=== PATIENT | male | born 1940 | race Caucasian/White ===

== ENCOUNTER 2021-08-29 18:05 | Inpatient (IN) | payer MEDICARE ==
[~2021-08-29] VITALS: Ht 172.7 cm; Wt 73.1 kg
[2021-08-29] MEDS ORDERED: MAGN400O6 PO (18:15)
[2021-08-29] MEDS ORDERED: PANT40TA2 PO (18:15)
[2021-08-29] MEDS ORDERED: ONDA4TAB5 PO (18:15)
[2021-08-29] MEDS ORDERED: RIVA10TA PO (18:15)
[2021-08-29] MEDS ORDERED: HYDR-4076 PO (18:15)
[2021-08-29] MEDS ORDERED: LEVO75TA7 PO (18:15)
[2021-08-29] MEDS ORDERED: HYDR-4209 PO (18:15)
[2021-08-29] MEDS ORDERED: SILD20TA2 PO (18:15)
[2021-08-29] MEDS ORDERED: IPRA4AER IH (18:15)
[2021-08-29] MEDS ORDERED: ACET-868 PO (18:15)
[2021-08-29] MEDS ORDERED: MELA3TAB41 PO (18:15)
[2021-08-29] MEDS ORDERED: LORA-259 PO (18:15)
[2021-08-29] MEDS ORDERED: ALBU8.5H8 IH (18:15)
[2021-08-29] MEDS ORDERED: MULT-447 PO (18:15)
[2021-08-29] MEDS ORDERED: TAMS-12 PO (18:15)
[2021-08-29] MEDS ORDERED: SPIR25TA PO (18:15)
[2021-08-29] MEDS ORDERED: HYDR-3980 PO (18:15)
[2021-08-29 19:26] LABS: CALCIUM, SERUM 8.5 mg/dL (8.5-10.1); CARBON DIOXIDE 22 mmol/L (21-32); CHLORIDE 105 mmol/L (98-107); CREATININE 2.2 mg/dL (0.6-1.3); GLUCOSE 102 mg/dL (74-106); POTASSIUM 5.8 mmol/L (3.5-5.1); SODIUM SERUM 136 mmol/L (136-145); UREA NITROGEN, BLOOD 71 mg/dL (7-18)
[2021-08-29 19:36] LABS: ALANINE AMINOTRANSFERASE 386 U/L (12-78); ALBUMIN 3.4 g/dL (3.4-5.0); ALKALINE PHOSPHATASE 232 U/L (46-116); ASPARTATE AMINOTRANSFERASE 144 U/L (15-37); BILIRUBIN,DIRECT 0.9 mg/dL (0.0-0.2); BILIRUBIN,TOTAL 1.7 mg/dL (0.2-1.0); TOTAL PROTEIN, SERUM 6.7 g/dL (6.4-8.2)
[2021-08-29 19:57] LABS: BASOPHILS % (AUTO) 0.4 % (0.0-2.0); EOSINOPHILS % (AUTO) 2.9 % (0.0-6.0); HEMATOCRIT 34 % (39-51); HEMOGLOBIN 10.8 g/dL (13.5-17.5); LYMPHOCYTES # (AUTO) 0.3 K/uL (0.8-4.8); LYMPHOCYTES % (AUTO) 5.3 % (20.0-44.0); MEAN CORPUSCULAR HGB CONC 32 g/dl (31.0-36.0); MEAN CORPUSCULAR VOLUME 96 fL (80-96); MONOCYTES # (AUTO) 0.7 K/uL (0.1-1.30); MONOCYTES % (AUTO) 11.5 % (2.0-12.0); NEUTROPHILS # (AUTO) 4.7 K/uL (1.8-8.9); NEUTROPHILS % (AUTO) 79.9 % (43.0-81.0); PLATELET COUNT (AUTO) 169 K/uL (150-450); RED BLOOD CELL COUNT(AUTO) 3.55 MIL/uL (4.5-6.0); WHITE BLOOD COUNT (AUTO) 5.9 K/uL (4.3-11.0)
[2021-08-29] MEDS ORDERED: ACETAMINOPHEN 325 MG TABLET PO PRN (20:00)
[2021-08-29] MEDS ORDERED: MAG HYDROX/AL HYDROX/SIMETH 30 ML UDC PO PRN (20:00)
[2021-08-29] MEDS ORDERED: FUROSEMIDE 40 MG/4 ML VIAL IV ONE (20:00)
[2021-08-29] MEDS ORDERED: ONDANSETRON HCL/PF 4 MG/2 ML VIAL IVP PRN (20:00)
[2021-08-29] MEDS: IPRATROPIUM NEB FS 0.5 MG/2.5 ML AMPUL.NEB NEB SCH (20:00)
[2021-08-29] MEDS ORDERED: LORAZEPAM 1 MG TABLET PO PRN (20:00)
[2021-08-29] MEDS ORDERED: BUMETANIDE INJ 4 MG in IV NS 0.9% 24 ML IV ONE (20:00)
[2021-08-29] MEDS ORDERED: MAGNESIUM HYDROXIDE 30 ML UDC PO PRN (20:00)
[2021-08-29] MEDS ORDERED: DOBUTamine 500 MG in IV D5W 210 ML IV PRN ×2 (23:00→23:30)
[2021-08-29] MEDS ORDERED: DOBUTamine 12.5 MG/ML VIAL IV ONE (23:04)
[2021-08-29] MEDS: DOBUTamine 500 MG in IV D5W 210 ML IV PRN (23:47)
[2021-08-30] VITALS (94 sets, daily range): BP systolic 50–130; BP diastolic 34–87
[2021-08-30] MEDS ORDERED: PIPERACILLIN /TAZOBACTAM 3.375 G in IV D5W 50 ML IV ONE ×2
[2021-08-30 00:40] LABS: ABG BASE EXCESS -8.8 mmol/L; ABG PH 7.349 (7.350-7.450); ABG PO2 115.8 mmHg (75.0-100.0); COHb 0.2 % (0.5-1.5); MetHb 0.3 % (0.0-1.5); O2Hb 97.5 % (94.0-97.0); SITE, ABG Right Radial; VENT MODE, BG NASAL CANNULA
[2021-08-30] MEDS ORDERED: PIPERACILLIN /TAZOBACTAM 3.375 G VIAL IV ONE (01:18)
[2021-08-30] MEDS: IPRATROPIUM NEB FS 0.5 MG/2.5 ML AMPUL.NEB NEB SCH ×4 (01:30→19:54)
[2021-08-30] MEDS: ACETAMINOPHEN 325 MG TABLET PO PRN (01:38)
[2021-08-30] MEDS: MORPHINE SULFATE INJ 2 MG/ML DISP.SYRIN IV PRN ×4 (03:04→22:19)
[2021-08-30] MEDS ORDERED: GELATIN SPONGE,ABSORBABLE 1 SPONGE SPONGE TP ONE (04:34)
[2021-08-30 04:49] LABS: BASOPHILS % (AUTO) 0.5 % (0.0-2.0); EOSINOPHILS % (AUTO) 1.6 % (0.0-6.0); HEMATOCRIT 30 % (39-51); HEMOGLOBIN 9.8 g/dL (13.5-17.5); LYMPHOCYTES # (AUTO) 0.2 K/uL (0.8-4.8); LYMPHOCYTES % (AUTO) 3.1 % (20.0-44.0); MEAN CORPUSCULAR HGB CONC 32 g/dl (31.0-36.0); MEAN CORPUSCULAR VOLUME 96 fL (80-96); MONOCYTES # (AUTO) 0.6 K/uL (0.1-1.30); MONOCYTES % (AUTO) 8.6 % (2.0-12.0); NEUTROPHILS # (AUTO) 5.7 K/uL (1.8-8.9); NEUTROPHILS % (AUTO) 86.2 % (43.0-81.0); PLATELET COUNT (AUTO) 149 K/uL (150-450); RED BLOOD CELL COUNT(AUTO) 3.17 MIL/uL (4.5-6.0); WHITE BLOOD COUNT (AUTO) 6.6 K/uL (4.3-11.0)
[2021-08-30 05:24] LABS: ALANINE AMINOTRANSFERASE 320 U/L (12-78); ALBUMIN 3.1 g/dL (3.4-5.0); ALKALINE PHOSPHATASE 197 U/L (46-116); ASPARTATE AMINOTRANSFERASE 107 U/L (15-37); BILIRUBIN,TOTAL 2.1 mg/dL (0.2-1.0); CALCIUM, SERUM 8.3 mg/dL (8.5-10.1); CARBON DIOXIDE 20 mmol/L (21-32); CHLORIDE 106 mmol/L (98-107); CREATININE 2.1 mg/dL (0.6-1.3); GLUCOSE 88 mg/dL (74-106); MAGNESIUM 2.4 mg/dL (1.8-2.4); PHOSPHORUS 5.1 mg/dL (2.5-4.9); POTASSIUM 5.3 mmol/L (3.5-5.1); SODIUM SERUM 138 mmol/L (136-145); UREA NITROGEN, BLOOD 69 mg/dL (7-18)
[2021-08-30] MEDS: LEVOTHYROXINE SODIUM 75 MCG TABLET PO SCH (07:34)
[2021-08-30] MEDS ORDERED: ALBUTEROL FS 2.5 MG/3 ML VIAL.NEB NEB PRN (08:30)
[2021-08-30] MEDS: SILDENAFIL CITRATE 20 MG TABLET PO SCH ×3 (09:00→17:00)
[2021-08-30] MEDS ORDERED: SPIRONOLACTONE 25 MG TABLET PO SCH (09:00)
[2021-08-30] MEDS: PANTOPRAZOLE 40 MG TABLET.DR PO SCH ×2 (09:50→17:12)
[2021-08-30] MEDS: PIPERACILLIN /TAZOBACTAM 2.25 G in IV D5W 50 ML IV SCH ×3 (12:47→22:28)
[2021-08-30 14:59] LABS: ALANINE AMINOTRANSFERASE 297 U/L (12-78); ALBUMIN 3.1 g/dL (3.4-5.0); ALKALINE PHOSPHATASE 181 U/L (46-116); ASPARTATE AMINOTRANSFERASE 98 U/L (15-37); CALCIUM, SERUM 8.3 mg/dL (8.5-10.1); CARBON DIOXIDE 22 mmol/L (21-32); CHLORIDE 106 mmol/L (98-107); GLUCOSE 90 mg/dL (74-106); POTASSIUM 4.9 mmol/L (3.5-5.1); SODIUM SERUM 137 mmol/L (136-145); TOTAL PROTEIN, SERUM 5.8 g/dL (6.4-8.2); UREA NITROGEN, BLOOD 68 mg/dL (7-18)
[2021-08-30] MEDS: TAMSULOSIN 0.4 MG CAP.SR.24H PO SCH (17:12)
[2021-08-30] MEDS ORDERED: RIVAROXABAN 10 MG TABLET PO SCH (18:00)
[2021-08-30] MEDS: DOBUTamine 500 MG in IV D5W 210 ML IV PRN (18:15)
[2021-08-30 18:21] LABS: CALCIUM, SERUM 7.3 mg/dL (8.5-10.1); CARBON DIOXIDE 20 mmol/L (21-32); CHLORIDE 93 mmol/L (98-107); CREATININE 2.3 mg/dL (0.6-1.3); POTASSIUM 4.6 mmol/L (3.5-5.1); SODIUM SERUM 132 mmol/L (136-145); UREA NITROGEN, BLOOD 59 mg/dL (7-18)
[2021-08-30 18:51] LABS: GLUCOSE 492 mg/dL (74-106)
[2021-08-30] MEDS: FUROSEMIDE 20 MG/2 ML VIAL IV SCH (19:20)
[2021-08-30 22:47] LABS: ALANINE AMINOTRANSFERASE 277 U/L (12-78); ALKALINE PHOSPHATASE 178 U/L (46-116); ASPARTATE AMINOTRANSFERASE 95 U/L (15-37); BILIRUBIN,TOTAL 2.1 mg/dL (0.2-1.0); CALCIUM, SERUM 8.2 mg/dL (8.5-10.1); CARBON DIOXIDE 24 mmol/L (21-32); CHLORIDE 105 mmol/L (98-107); CREATININE 2.1 mg/dL (0.6-1.3); GLUCOSE 91 mg/dL (74-106); POTASSIUM 5.2 mmol/L (3.5-5.1); SODIUM SERUM 137 mmol/L (136-145); TOTAL PROTEIN, SERUM 5.9 g/dL (6.4-8.2); UREA NITROGEN, BLOOD 65 mg/dL (7-18)
[2021-08-31] VITALS (98 sets, daily range): BP systolic 77–129; BP diastolic 24–93
[2021-08-31] MEDS: IPRATROPIUM NEB FS 0.5 MG/2.5 ML AMPUL.NEB NEB SCH ×4 (01:40→20:24)
[2021-08-31 04:53] LABS: BASOPHILS % (AUTO) 0.5 % (0.0-2.0); EOSINOPHILS % (AUTO) 2.2 % (0.0-6.0); HEMATOCRIT 29 % (39-51); HEMOGLOBIN 9.6 g/dL (13.5-17.5); LYMPHOCYTES # (AUTO) 0.2 K/uL (0.8-4.8); LYMPHOCYTES % (AUTO) 3.1 % (20.0-44.0); MEAN CORPUSCULAR HGB CONC 33 g/dl (31.0-36.0); MEAN CORPUSCULAR VOLUME 95 fL (80-96); MONOCYTES # (AUTO) 0.5 K/uL (0.1-1.30); MONOCYTES % (AUTO) 9.1 % (2.0-12.0); NEUTROPHILS # (AUTO) 4.3 K/uL (1.8-8.9); NEUTROPHILS % (AUTO) 85.1 % (43.0-81.0); PLATELET COUNT (AUTO) 145 K/uL (150-450); WHITE BLOOD COUNT (AUTO) 5.1 K/uL (4.3-11.0)
[2021-08-31 05:01] LABS: CALCIUM, SERUM 8.1 mg/dL (8.5-10.1); CARBON DIOXIDE 22 mmol/L (21-32); CHLORIDE 105 mmol/L (98-107); GLUCOSE 77 mg/dL (74-106); POTASSIUM 5.1 mmol/L (3.5-5.1); SODIUM SERUM 138 mmol/L (136-145); UREA NITROGEN, BLOOD 62 mg/dL (7-18)
[2021-08-31] MEDS: PIPERACILLIN /TAZOBACTAM 2.25 G in IV D5W 50 ML IV SCH ×2 (05:12→10:45)
[2021-08-31] MEDS: PANTOPRAZOLE 40 MG TABLET.DR PO SCH ×2 (08:56→16:58)
[2021-08-31] MEDS: FUROSEMIDE 20 MG/2 ML VIAL IV SCH ×2 (08:56→17:00)
[2021-08-31] MEDS: LEVOTHYROXINE SODIUM 75 MCG TABLET PO SCH (08:56)
[2021-08-31] MEDS: MORPHINE SULFATE INJ 2 MG/ML DISP.SYRIN IV PRN ×3 (08:56→22:54)
[2021-08-31] MEDS: SILDENAFIL CITRATE 20 MG TABLET PO SCH ×3 (10:23→17:08)
[2021-08-31] MEDS: DOBUTamine 500 MG in IV D5W 210 ML IV PRN (10:28)
[2021-08-31] MEDS: ACETAMINOPHEN 325 MG TABLET PO PRN (16:58)
[2021-08-31] MEDS: TAMSULOSIN 0.4 MG CAP.SR.24H PO SCH (17:08)
[2021-09-01] VITALS (89 sets, daily range): BP systolic 67–119; BP diastolic 30–82
[2021-09-01] MEDS: DOBUTamine 500 MG in IV D5W 210 ML IV PRN ×2 (01:24→17:41)
[2021-09-01] MEDS: IPRATROPIUM NEB FS 0.5 MG/2.5 ML AMPUL.NEB NEB SCH ×4 (01:33→20:00)
[2021-09-01 04:46] LABS: CALCIUM, SERUM 8.4 mg/dL (8.5-10.1); CARBON DIOXIDE 24 mmol/L (21-32); CHLORIDE 103 mmol/L (98-107); CREATININE 2.4 mg/dL (0.6-1.3); GLUCOSE 90 mg/dL (74-106); MAGNESIUM 2.3 mg/dL (1.8-2.4); POTASSIUM 5.3 mmol/L (3.5-5.1); SODIUM SERUM 137 mmol/L (136-145); UREA NITROGEN, BLOOD 58 mg/dL (7-18)
[2021-09-01] MEDS: MORPHINE SULFATE INJ 2 MG/ML DISP.SYRIN IV PRN (06:26)
[2021-09-01] MEDS: LEVOTHYROXINE SODIUM 75 MCG TABLET PO SCH (07:46)
[2021-09-01] MEDS: PANTOPRAZOLE 40 MG TABLET.DR PO SCH ×2 (09:03→17:05)
[2021-09-01] MEDS: SILDENAFIL CITRATE 20 MG TABLET PO SCH ×3 (09:03→17:05)
[2021-09-01] MEDS: FUROSEMIDE 20 MG/2 ML VIAL IV SCH (09:03)
[2021-09-01] MEDS ORDERED: IV NS 0.9% 250 ML IV ONE (10:00)
[2021-09-01] MEDS: LIDOCAINE 5% (PATCH) 1 EA PATCH TP SCH (13:35)
[2021-09-01] MEDS: TAMSULOSIN 0.4 MG CAP.SR.24H PO SCH (17:05)
[2021-09-02] VITALS (76 sets, daily range): BP systolic 79–146; BP diastolic 51–78
[2021-09-02] MEDS: IPRATROPIUM NEB FS 0.5 MG/2.5 ML AMPUL.NEB NEB SCH ×4 (01:25→19:29)
[2021-09-02 05:45] LABS: ALANINE AMINOTRANSFERASE 202 U/L (12-78); ALKALINE PHOSPHATASE 135 U/L (46-116); ASPARTATE AMINOTRANSFERASE 80 U/L (15-37); BILIRUBIN,TOTAL 1.9 mg/dL (0.2-1.0); CALCIUM, SERUM 8.5 mg/dL (8.5-10.1); CARBON DIOXIDE 21 mmol/L (21-32); CHLORIDE 103 mmol/L (98-107); CREATININE 2.5 mg/dL (0.6-1.3); GLUCOSE 107 mg/dL (74-106); POTASSIUM 5.2 mmol/L (3.5-5.1); SODIUM SERUM 136 mmol/L (136-145); TOTAL PROTEIN, SERUM 5.9 g/dL (6.4-8.2); UREA NITROGEN, BLOOD 59 mg/dL (7-18)
[2021-09-02] MEDS: LEVOTHYROXINE SODIUM 75 MCG TABLET PO SCH (08:48)
[2021-09-02] MEDS: PANTOPRAZOLE 40 MG TABLET.DR PO SCH ×2 (08:48→16:24)
[2021-09-02] MEDS: SILDENAFIL CITRATE 20 MG TABLET PO SCH ×3 (08:49→16:24)
[2021-09-02] MEDS: DOBUTamine 500 MG in IV D5W 210 ML IV PRN ×2 (09:03→20:13)
[2021-09-02] MEDS: LIDOCAINE 5% (PATCH) 1 EA PATCH TP SCH (12:18)
[2021-09-02] MEDS: MORPHINE SULFATE INJ 2 MG/ML DISP.SYRIN IV PRN ×3 (13:03→23:29)
[2021-09-02] MEDS: TAMSULOSIN 0.4 MG CAP.SR.24H PO SCH (17:14)
[2021-09-03] VITALS (89 sets, daily range): BP systolic 79–141; BP diastolic 40–105
[2021-09-03] MEDS: IPRATROPIUM NEB FS 0.5 MG/2.5 ML AMPUL.NEB NEB SCH ×4 (01:47→20:25)
[2021-09-03] MEDS: MORPHINE SULFATE INJ 2 MG/ML DISP.SYRIN IV PRN ×3 (04:15→20:30)
[2021-09-03 05:43] LABS: CALCIUM, SERUM 8.5 mg/dL (8.5-10.1); CARBON DIOXIDE 23 mmol/L (21-32); CHLORIDE 104 mmol/L (98-107); CREATININE 2.4 mg/dL (0.6-1.3); GLUCOSE 103 mg/dL (74-106); POTASSIUM 4.8 mmol/L (3.5-5.1); SODIUM SERUM 137 mmol/L (136-145); UREA NITROGEN, BLOOD 57 mg/dL (7-18)
[2021-09-03] MEDS: SILDENAFIL CITRATE 20 MG TABLET PO SCH ×3 (08:48→17:15)
[2021-09-03] MEDS: LEVOTHYROXINE SODIUM 75 MCG TABLET PO SCH (08:48)
[2021-09-03] MEDS: PANTOPRAZOLE 40 MG TABLET.DR PO SCH ×2 (08:48→17:15)
[2021-09-03] MEDS: DOBUTamine 500 MG in IV D5W 210 ML IV PRN (09:49)
[2021-09-03] MEDS: LIDOCAINE 5% (PATCH) 1 EA PATCH TP SCH (11:26)
[2021-09-03] MEDS ORDERED: IV NS 0.9% 250 ML IV ONE (13:00)
[2021-09-03] MEDS: TAMSULOSIN 0.4 MG CAP.SR.24H PO SCH (17:15)
[2021-09-04] VITALS (68 sets, daily range): BP systolic 81–153; BP diastolic 41–99
[2021-09-04] MEDS: MORPHINE SULFATE INJ 2 MG/ML DISP.SYRIN IV PRN (00:31)
[2021-09-04] MEDS: DOBUTamine 500 MG in IV D5W 210 ML IV PRN ×2 (01:21→13:44)
[2021-09-04] MEDS: IPRATROPIUM NEB FS 0.5 MG/2.5 ML AMPUL.NEB NEB SCH ×3 (02:05→21:01)
[2021-09-04 04:29] LABS: CALCIUM, SERUM 8.3 mg/dL (8.5-10.1); CARBON DIOXIDE 25 mmol/L (21-32); CHLORIDE 103 mmol/L (98-107); CREATININE 2.1 mg/dL (0.6-1.3); GLUCOSE 145 mg/dL (74-106); POTASSIUM 5.1 mmol/L (3.5-5.1); SODIUM SERUM 136 mmol/L (136-145); UREA NITROGEN, BLOOD 52 mg/dL (7-18)
[2021-09-04] MEDS: LEVOTHYROXINE SODIUM 75 MCG TABLET PO SCH (08:21)
[2021-09-04] MEDS: PANTOPRAZOLE 40 MG TABLET.DR PO SCH ×2 (08:21→19:18)
[2021-09-04] MEDS: LIDOCAINE 5% (PATCH) 1 EA PATCH TP SCH (11:30)
[2021-09-04] MEDS: MORPHINE SULFATE INJ 4 MG/ML DISP.SYRIN IV PRN ×2 (11:37→16:02)
[2021-09-04] MEDS ORDERED: DOBUTamine 500 MG in IV D5W 210 ML IV PRN (16:00)
[2021-09-04 16:01] LABS: ALBUMIN 2.7 g/dL (3.4-5.0); BILIRUBIN,DIRECT 0.8 mg/dL (0.0-0.2); BILIRUBIN,TOTAL 1.6 mg/dL (0.2-1.0); TOTAL PROTEIN, SERUM 5.8 g/dL (6.4-8.2)
[2021-09-04] MEDS: TAMSULOSIN 0.4 MG CAP.SR.24H PO SCH (19:18)
[2021-09-04] MEDS: MIDODRINE HCL (5MG) 5 MG TABLET PO SCH (19:18)
[2021-09-05] VITALS: BP 103/64
[2021-09-05] MEDS: IPRATROPIUM NEB FS 0.5 MG/2.5 ML AMPUL.NEB NEB SCH (01:30)
[2021-09-05 04:00] VITALS: BP 95/57
[2021-09-05] MEDS: MORPHINE SULFATE INJ 4 MG/ML DISP.SYRIN IV PRN ×2 (05:28→08:54)
[2021-09-05 07:17] LABS: CALCIUM, SERUM 8.4 mg/dL (8.5-10.1); CARBON DIOXIDE 23 mmol/L (21-32); CHLORIDE 103 mmol/L (98-107); CREATININE 2.3 mg/dL (0.6-1.3); GLUCOSE 103 mg/dL (74-106); POTASSIUM 5.4 mmol/L (3.5-5.1); SODIUM SERUM 135 mmol/L (136-145); UREA NITROGEN, BLOOD 57 mg/dL (7-18)
[2021-09-05] MEDS: LEVOTHYROXINE SODIUM 75 MCG TABLET PO SCH (08:31)
[2021-09-05 08:32] VITALS: BP 93/63
[2021-09-05] MEDS: PANTOPRAZOLE 40 MG TABLET.DR PO SCH (08:32)
[2021-09-05] MEDS: MIDODRINE HCL (5MG) 5 MG TABLET PO SCH (08:32)
== END 2021-09-05 09:31 | disposition hospice, inpatient (51) | DRG 291 ==
LOC: ER 18:09 → TRANSITION 22:41 → ICU 23:05 → TELE-TD 09-04 17:30
PROVIDERS: ADMIT Internal Medicine; ATTEND Nurse Practitioner Acute Care
PROC: 02HV33Z Insertion of Infusion Device into Superior Vena Cava, Percutaneous Approach (ICD-10-PCS; principal; 2021-08-29)
PROC: B548ZZA Ultrasonography of Superior Vena Cava, Guidance (ICD-10-PCS; 2021-08-29)
DX: I13.0 Hypertensive heart and chronic kidney disease with heart failure and stage 1 through stage 4 chronic kidney disease, or unspecified chronic kidney disease (principal); J96.21 Acute and chronic respiratory failure with hypoxia; I50.43 Acute on chronic combined systolic (congestive) and diastolic (congestive) heart failure; R57.0 Cardiogenic shock; N17.0 Acute kidney failure with tubular necrosis; K72.00 Acute and subacute hepatic failure without coma; D68.9 Coagulation defect, unspecified; E44.0 Moderate protein-calorie malnutrition; G93.40 Encephalopathy, unspecified; I42.0 Dilated cardiomyopathy; I48.91 Unspecified atrial fibrillation; Z95.810 Presence of automatic (implantable) cardiac defibrillator; Z20.822 Contact with and (suspected) exposure to COVID-19; N18.9 Chronic kidney disease, unspecified; E03.9 Hypothyroidism, unspecified; D50.9 Iron deficiency anemia, unspecified; Z90.49 Acquired absence of other specified parts of digestive tract; Z91.09 Other allergy status, other than to drugs and biological substances; Z79.01 Long term (current) use of anticoagulants; Z79.899 Other long term (current) drug therapy; Z79.51 Long term (current) use of inhaled steroids; D64.9 Anemia, unspecified; I27.21 Secondary pulmonary arterial hypertension; E88.09 Other disorders of plasma-protein metabolism, not elsewhere classified; Z66 Do not resuscitate; Y95 Nosocomial condition; E87.5 Hyperkalemia; N40.0 Benign prostatic hyperplasia without lower urinary tract symptoms; Z85.528 Personal history of other malignant neoplasm of kidney; N28.1 Cyst of kidney, acquired; Z88.8 Allergy status to other drugs, medicaments and biological substances; K74.60 Unspecified cirrhosis of liver
CPT/HCPCS: 36415; 36569; 36600; 71045-TC; 71250-TC; 76700-TC; 80048-TC; 80053-TC; 80074; 80076-TC; 82803-TC; 83735-TC; 83880; 84100-TC; 84484-TC; 85025-TC; 85378-TC; 85730-TC; 87040-TC; 87081-TC; 87806; 92526; 92611-TC; 93307-TC; 93970-TC; 94799-TC; A6403; C9803; G0378; J1250; J1940; J2270; J2405; J2543; J3490; J7030; J7040; J7050; J7060

== ENCOUNTER 2021-09-05 09:24 | Inpatient (IN) | payer OTHER ==
--- NOTE | 2021-09-05 09:00 | NUR ---
dicussed with meeting patient signed for hospice under [facility],confirmed with shawn litigation counsel ok [facility] ho made aware.also admitting under dr. jesse SCHMITT.
[~2021-09-05 09:24] MED LIST: ACET-868 PO; ALBU8.5H8 IH; HYDR-3980 PO; HYDR-4076 PO; HYDR-4209 PO; IPRA4AER IH; LEVO75TA7 PO; LORA-259 PO; MAGN400O6 PO; MELA3TAB41 PO; MULT-447 PO; ONDA4TAB5 PO; PANT40TA2 PO; RIVA10TA PO; SILD20TA2 PO; SPIR25TA PO; TAMS-12 PO
--- NOTE | 2021-09-05 09:30 | NUR ---
HOSPICE NURSE CAIT FROM [facility] NOTIFIED.
--- NOTE | 2021-09-05 10:09 | NUR ---
DAUGHTER AT BEDSIDE AGREED WITH CURRENT PLAN OF CARE HOSPICE AND SIGNED [facility] FOCUS OF CARE.
[2021-09-05] MEDS ORDERED: LORAZEPAM 0.5 MG TABLET PO PRN (10:30)
[2021-09-05] MEDS ORDERED: ACETAMINOPHEN 650 MG/SUPP.RECT RC PRN (10:30)
[2021-09-05] MEDS: MORPHINE SULFATE INJ 2 MG/ML DISP.SYRIN IV PRN ×4 (12:37→19:47)
--- NOTE | 2021-09-05 15:52 | NUR ---
spoke with nevaeh escobar for orders need to call hospice.place a call to [facility] and verified if ok to change ativan to ivp and increase morphine frequency to q 2 hours.awaits response.
[2021-09-05 16:00] VITALS: BP 97/56
--- NOTE | 2021-09-05 19:24 | NUR ---
RN CLOSING NOTES NO SIGNIFICANT CHANGES THROUGHOUT THE SHIFT. NO SOB. ALL DUE MEDS GIVEN. NEEDS ATTENDED. KEPT CLEAN AND COMFORTABLE. SAFETY MEASURES IMPLEMENTED. ENDORSED TO NIGHT RN FOR SAMUEL.
--- NOTE | 2021-09-05 19:47 | NUR ---
RN NOTE RECEIVED PATIENT IN BED, ALERT AND ORIENTED X3. FORGETFUL AT TIMES. COMPLAINED OF SEVERE GENERALIZED PAIN, REQUESTING FOR MORPHINE. ADMINISTERED MORPHINE 2MG PER MD ORDERS AT THIS TIME. ON HOSPICE CARE, KEPT CLEAN AND COMFORTABLE. WARM BLANKET GIVEN. SIPS OF WATER GIVEN. BED LOCKED AND IN LOWEST POSITION. CALL LIGHT WITHIN REACH. ALL NEEDS ANTICIPATED.
[2021-09-06] VITALS: BP 88/62
[2021-09-06] MEDS: MORPHINE SULFATE INJ 2 MG/ML DISP.SYRIN IV PRN ×6 (03:38→21:45)
--- NOTE | 2021-09-06 06:54 | NUR ---
RN NOTE PATIENT RESTING IN BED. CONTINUES ON O2 2L VIA NASAL CANNULA. SLEPT WELL OVER NIGHT. ON HOSPICE CARE, KEPT CLEAN AND COMFORTABLE. MORPHINE ORDERED GIVEN OVER NIGHT FOR PAIN AND EFFECTIVE. BED LOCKED AND IN LOWEST POSITION. CALL LIGHT WITHIN REACH. WILL ENDORSE TO AM SHIFT.
--- NOTE | 2021-09-06 07:30 | NUR ---
received asleep on bed ,no acute distress.
[2021-09-06 08:01] VITALS: BP 85/62
--- NOTE | 2021-09-06 08:36 | NUR ---
morphine given as ordered per pt. c/o 03/31 back pain.
--- NOTE | 2021-09-06 09:51 | NUR ---
PATIENT STILL COMPLAIN OF BACK PAIN 09/28,DR. FARNSWORTH NOTIFIED AND INCREASED FREQUENCY OF MORPHINE.
--- NOTE | 2021-09-06 09:54 | NUR ---
DAUGHTER CALLED UPDATED WITH PATIENT CONDITION AND EMOTIONAL SUPPORT GIVEN.
--- NOTE | 2021-09-06 10:25 | NUR ---
PATIENT PAIN RELEIVED ,PT. KEEP SAYING I FEEL WARM,REMOVED HIS BLANKET,HOSPICE NURSE AT BEDSIDE,WILL GIVE PRN ATIVAN FOR ANXIETY.
[2021-09-06] MEDS: LORAZEPAM INJ 2 MG/ML VIAL IV PRN (10:31)
--- NOTE | 2021-09-06 10:59 | NUR ---
ASLEEP,NO ACUTE DISTRESS.
--- NOTE | 2021-09-06 12:15 | NUR ---
PATIENT ASLEEP NO ACUTE DISTRESS.
--- NOTE | 2021-09-06 15:23 | NUR ---
PATIENT COMFORTABLE ,NO ACUTE DISTRESS.
[2021-09-06 16:51] VITALS: BP 80/62
--- NOTE | 2021-09-06 17:31 | NUR ---
pt. asleep no acute distress.
--- NOTE | 2021-09-06 18:40 | NUR ---
patient c/o back pain requested pain meds,prn morphine given.
--- NOTE | 2021-09-06 18:51 | NUR ---
patient asleep ,no acute distress.
[2021-09-06 20:00] VITALS: BP 92/61
--- NOTE | 2021-09-06 20:00 | NUR ---
Patient currently A&Ox2, no signs of distress. denies pain at this time. No anxiety/agitation/restlessness. All 3 ports HO PICC line flushed and patent. Will continue to monitor patient.
--- NOTE | 2021-09-06 21:45 | NUR ---
Patient c/o generalized pain, looks restless and uncomfortable. PRN morphine given as per order.
[2021-09-07] VITALS: BP 95/65
[2021-09-07] MEDS: MORPHINE SULFATE INJ 2 MG/ML DISP.SYRIN IV PRN ×3 (02:59→14:28)
--- NOTE | 2021-09-07 02:59 | NUR ---
Patient cleaned and changed. C/o lower back and hip pain. PRN morphine given as per order.
[2021-09-07 04:00] VITALS: BP 92/61
--- NOTE | 2021-09-07 06:27 | NUR ---
RN CLOSING NOTES Patient has been A&Ox2 overnight, pt. needs anticipate but still able to verbalize pain. Patient reported pain relieved by PRN morphine. Kept comfortable. Turned and kept clean.
--- NOTE | 2021-09-07 07:29 | NUR ---
RN NOTES RECEIVED PATIENT IN BED, AWAKE, A&O X 2, IN NO ACUTE DISTRESS NOTED. IV ACCESS ON HO PICC LINE PATENT AND FLUSHES WELL. NO COMPLAINTS OF PAIN AT THIS TIME. WITH O2 VIA NC AT 5LPM NO SOB NOTED. SAFETY PRECAUTIONS IN PLACE. BED ON LOWEST LOCKED POSITION, SIDE RIALS UP X 2, CALL LIGHT WITHIN EASY REACH. WILL CONTINUE TO MONITOR ACCORDINGLY.
[2021-09-07 08:00] VITALS: BP 97/60
[2021-09-07] MEDS: LORAZEPAM INJ 2 MG/ML VIAL IV PRN ×2 (15:53→22:00)
[2021-09-07 16:00] VITALS: BP 89/50
--- NOTE | 2021-09-07 18:33 | NUR ---
RN CLOSING NOTES PATIENT IN BED, AWAKE, A&O X 2, IN NO ACUTE DISTRESS NOTED. IV ACCESS ON HO PICC LINE PATENT AND FLUSHES WELL. NO COMPLAINTS OF PAIN AT THIS TIME. WITH O2 VIA NC AT 5LPM NO SOB NOTED. SAFETY PRECAUTIONS IN PLACE. BED ON LOWEST LOCKED POSITION, SIDE RAILS UP X 2, CALL LIGHT WITHIN EASY REACH. PAIN MANAGED BY PAIN MEDICATION DURING THE SHIFT. ALL NEEDS ATTENDED AND MET, KEPT PATIENT COMFORTABLE. WILL ENDORSE TO ONCOMING SHIFT FOR SAMUEL.
--- NOTE | 2021-09-07 19:55 | NUR ---
HOSPICE OPENING NOTE PATIENT RECEIVED AWAKE IN BED. A/OX2. NO S/S OF DISTRESS, BREATHING SYMMETRICAL. 5L NC. HO PICC LINE SL INTACT AND PATENT. NO COMPLAINTS OF PAIN NOTED AT THIS TIME, BUT WILL BE CONTINUALLY MONITORED. SAFETY MEASURES IN PLACE: BED AT LOWEST POSITION, RAILS UP X2, CALL SCOTT WITHIN REACH. WILL CONTINUE TO MONITOR PATIENT.
[2021-09-08] VITALS: BP 99/67
[2021-09-08] MEDS: MORPHINE SULFATE INJ 2 MG/ML DISP.SYRIN IV PRN ×3 (03:31→14:46)
--- NOTE | 2021-09-08 06:18 | NUR ---
HOSPICE CLOSING NOTE PATIENT AWAKE IN BED. A/OX2. NO S/S OF DISTRESS, BREATHING SYMMETRICAL. 5L NC. HO PICC LINE SL INTACT AND PATENT. NO COMPLAINTS OF PAIN NOTED AT THIS TIME, BUT WILL BE CONTINUALLY MONITORED. SAFETY MEASURES IN PLACE: BED AT LOWEST POSITION, RAILS UP X2, CALL SCOTT WITHIN REACH. WILL ENDORSE TO FOLLOWING SHIFT FOR SAMUEL.
--- NOTE | 2021-09-08 07:50 | NUR ---
RN OPENING NOTES Pt IS IN BED RESTING. A/Ox2. Pt IS ON 5L OF NC AND TOLERATING WELL. NO SIGNS OF PAIN OR DISTRESS AT THIS TIME. SAFETY MEASURES ARE IN PLACE: BED IS LOCKED AND IN LOWEST POSITION. SIDE RAILS UPx3. BED SIDE TABLE AND CALL LIGHT ARE WITHIN REACH. WILL CONTINUE TO MONITOR THROUGHOUT THE SHIFT.
[2021-09-08 09:25] VITALS: BP 99/63
[2021-09-08 16:45] VITALS: BP 77/62
--- NOTE | 2021-09-08 18:31 | NUR ---
RN CLOSING NOTES Pt IS INTERMITTENTLY DOSING OFF. Pt IS ON O2 VIA 5L ON NC. NO COMPLAINTS OF PAIN AT THIS TIME, NO SIGNS OF DISTRESS. R UPPER ARM PICC LINE IS PATENT AND INTACT. Pt IS ON HOSPICE AND ALL COMFORT NEEDS WERE MET. SAFETY MEASURES ARE IN PLACE: BED IS LOCKED AND IN LOWEST POSITION. SIDE RAILS UPx3.BED SIDE TABLE AND CALL LIGHT ARE WITHIN REACH. WILL ENDORSE TO ONCOMING SHIFT.
--- NOTE | 2021-09-08 19:10 | NUR ---
RN NOTES RECEIVED REPORT FROM MORNING RN PATIENT IN BED A/O X 2-3 WITH PERIODS OF CONFUSION. ON HOSPICE. WITH OXYHENY INHALATION AT 5LPM SATING 98%.NO DISTRESS NO DESATURATION NOTED AT THIS TIME. WITH IV ACCESS AT [facility] PICC LINE FLUSHES WELL. VITAL SIGNS TAKEN AND RECORDED. ALL SAFETY MEASURES IN PLACE AT ALL TIMES. HOB ELEVATED. CALL LIGJT WITHIN REACH. WILL CLOSELY MONITOR THE PATIENT
[2021-09-09] VITALS: BP 97/69
[2021-09-09] MEDS ORDERED: MAGNESIUM HYDROXIDE 30 ML UDC PO ONE (06:00)
--- NOTE | 2021-09-09 06:36 | NUR ---
RN NOTES PATIENT REMAINS IN STABLE CONDITION NO SIGNIFICANT CHANGES IN HEALTH CONDITION. STILL ON OXYGEN INHALATION SATING 98%. ALL SAFETY MEASURES IN PLACE AT ALL TIMES. HOB ELEVATED. CALL LIGHT WITHIN REACH. BED ON LOWEST [POSITION AND LOCKED. PATIENT IS HOSPICE COMFORT MEASURE PROVIDED AT ALL TIMES.
--- NOTE | 2021-09-09 07:30 | NUR ---
RN OPENING NOTE PT IS AWAKE IN BED. A/O X2. ABLE TO RESPOND TO QUESTIONS AND ABLE TO MAKE NEEDS KNOWN WHEN ASKED. NO S/SX OF ACUTE DISTRESS. NO X/O PAIN AT THIS TIME. BREATHING IS LABORED. PT ON 5L 02 VIA NASAL CANNULA. IV ACCESS HO PICC LINE PATENT AND INTACT. SAFETY MEASURES IN PLACE WITH BED LOCKED AT LOWEST POSITION AND SIDE RAILS UP X 3. CALL LIGHT IS WITHIN REACH. WILL CONTINUE TO MONITOR PATIENT THROUGHOUT SHIFT.
[2021-09-09 08:00] VITALS: BP 120/50
[2021-09-09] MEDS: MORPHINE SULFATE INJ 2 MG/ML DISP.SYRIN IV PRN ×3 (08:39→17:30)
--- NOTE | 2021-09-09 08:40 | NUR ---
RN NOTE-PAIN PT C/O OF GENERALIZED PAIN. ADMINISTERED MORPHINE 2MG IV FOR PAIN. WILL REASSESS EFFECTIVENESS.
--- NOTE | 2021-09-09 12:50 | NUR ---
RN NOTE-PAIN PT C/O LOWER ABDOMINAL PAIN. ADMINISTERED MORPHINE 2MG IV FOR PAIN. DAUGHTER, CLIFF AT BEDSIDE. WILL REASSESS MEDICATION EFFECTIVENESS.
[2021-09-09 16:00] VITALS: BP 99/65
--- NOTE | 2021-09-09 17:31 | NUR ---
RN NOTE-PAIN PT C/O ABDOMINAL PAIN; MORPHINE 2MG GIVEN IV. WILL REASSESS EFFECTIVENESS.
--- NOTE | 2021-09-09 18:04 | NUR ---
RN NOTE PT IS IS ANXIOUS AND TRYING TO GET UP FROM BED. ADMINISTERED ATIVAN 1MG FOR ANXIETY NEEDED.
[2021-09-09] MEDS: LORAZEPAM INJ 2 MG/ML VIAL IV PRN (18:07)
--- NOTE | 2021-09-09 18:54 | NUR ---
RN CLOSING NOTE PT IS SLEEPING COMFORTABLY IN BED. COMFORT MEASURES MAINTAINED. SAFETY MEASURES MAINTAINED. KEPT COMFORTABLE, DRY AND CLEAN. CALL LIGHT IS WITHIN REACH. WILL ENDORSE CONTINUITY OF CARE TO ONCOMING SHIFT.
--- NOTE | 2021-09-09 19:45 | NUR ---
TELE1 RN NOTES RECEIVED ON BED SLEEPING,AROUSABLE TO VERBAL STIMULI,WAS JUST MEDICATED WITH ATIVAN BY DAYSHIFT.WITH HO PICC LINE FOR MEDS,DNR/DNI STATUS [facility].FALL PRECAUTION OBSERVED,BED ON LOWEST POSITION AND LOCKED,CALL LIGHT IN REACH,NEEDS ANTICIPATED.
[2021-09-09 20:00] VITALS: BP 92/66
[2021-09-10 00:42] VITALS: BP 92/66
[2021-09-10] MEDS: MORPHINE SULFATE INJ 2 MG/ML DISP.SYRIN IV PRN ×3 (01:35→23:31)
--- NOTE | 2021-09-10 01:35 | NUR ---
MS GUTIERREZ NOTES EVENING CARE RENDERED BY LILLIAN RAMOS,,PATIENT MOANING WITH FACIAL GRIMACE NOTED.MORPHINE 2MG IV GIVEN ORDERED FOR COMFORT. Addendum: 09/10/21 at 0143 by FARRAH COREA RN BY LILLIAN BRENNER
--- NOTE | 2021-09-10 06:44 | NUR ---
MS RN NOTES NO SIGNIFICANT CHANGE IN STATUS.MORPHINE EFFECTIVE COMFORT MEASURES.DNR/DNI STATUS
[2021-09-10 08:00] VITALS: BP 93/72
[2021-09-10 16:00] VITALS: BP 93/72
--- NOTE | 2021-09-10 19:39 | NUR ---
RN NOTE PT RESTING IN BED, ON O2 @5L VIA NC, TOLERATING WELL. CONTINUES ON HOSPICE. PT REMAINED COMFORTABLE THIS SHIFT. NOT IN PAIN OR DISCOMFORT. NEEDS ATTENDED. SAFETY MEASURES FOLLOWED.
[2021-09-11] VITALS: BP 112/69
[2021-09-11] MEDS: LORAZEPAM INJ 2 MG/ML VIAL IV PRN ×3 (00:06→18:11)
[2021-09-11 02:00] VITALS: BP 105/78
[2021-09-11] MEDS: MORPHINE SULFATE INJ 2 MG/ML DISP.SYRIN IV PRN ×5 (02:54→20:05)
--- NOTE | 2021-09-11 07:34 | NUR ---
RN NOTES ENDORSE CARE OF PATIENT WHILE PATIENT IN BED, A/O X2. ON O2 @5L VIA NC, TOLERATING WELL, O2 SAT 96%. ON HOSPICE, COMFORT MEASURES FOLLOWED. PT REMAINED COMFORTABLE THIS SHIFT. NOT IN PAIN OR DISCOMFORT. NEEDS ATTENDED. SAFETY MEASURES FOLLOWED. ENDORSED TO AM NURSE FOR SAMUEL.
[2021-09-11 08:00] VITALS: BP 101/68
[2021-09-11 09:04] VITALS: BP 101/68
[2021-09-11 17:45] VITALS: BP 101/68
--- NOTE | 2021-09-11 19:10 | NUR ---
RN opening notes Received Pt from morning nurse. Pt is resting in bed comfortably. Pt is alert and orientedX1, lethargic and able to make needs known by nodding head. On 5 L NC. No SOB. NO S/S of distress noted. HO PICC is clean, intact, flushes well and SL. Safety precautions is maintained. Bed at low position, brakes locked, side rail upX3, hob elevated, bed alarm is on and call light is within reach. Will continue to monitor. Addendum: 09/11/21 at 2012 by KAVON BUSTILLOS RN Wilson cath is intact and draining dark yellow color urine.
[2021-09-11 20:00] VITALS: BP 97/74
--- NOTE | 2021-09-11 20:12 | NUR ---
RN notes Pt is complaining of pain, moaning and restless. administered morphine 2 mg/iv push/prn for pain. safety precautions is maintained. will continue to monitor.
[2021-09-12] VITALS: BP 97/74
[2021-09-12] MEDS: MORPHINE SULFATE INJ 2 MG/ML DISP.SYRIN IV PRN ×4 (03:57→16:40)
[2021-09-12 04:00] VITALS: BP 110/76
--- NOTE | 2021-09-12 06:37 | NUR ---
RN closing notes Pt is resting in bed comfortably. Pt is alert and orientedX1. On 5 L NC. No SOB. No S/S of distress noted. HO PICC is clean, intact, flushes well and SL. Kept Pt clean, dry and comfortable. Comfort measures is maintained. Safety precautions is maintained. Bed at low position, brakes locked, side rail upX3, hob elevated, bed alarm is on and call light is within reach. Will endorse to am nurse for SAMUEL.
--- NOTE | 2021-09-12 07:51 | NUR ---
DATABASE SECURITY ADMINISTRATOR OPENING NOTES RECEIVED PATIENT IN BED, ASLEEP AT THIS TIME WITH NO S/SX OF DISTRESS. PATIENT ON OXYGEN THERAPY AT 5 LPM VIA NASAL CANNULA; NO SOB NOTED. HO PICC PRESENT AND INTACT. SAFETY PRECAUTIONS IN PLACE; BED IN LOW POSITION AND LOCKED, RAILS UP X2, CALL LIGHT WITHIN REACH. WILL CONTINUE TO MONITOR PATIENT.
--- NOTE | 2021-09-12 08:41 | NUR ---
RN NOTES PATIENT MOANING, COMPLAINING OF PAIN. PRN MORPHINE 2MG/ML ADMINISTERED. WILL CONTINUE TO MONITOR.
[2021-09-12 09:00] VITALS: BP 99/74
--- NOTE | 2021-09-12 11:50 | NUR ---
RN NOTES PATIENT MOANING, COMPLAINING OF PAIN. PRN MORPHINE 2MG/ML ADMINISTERED. WILL CONTINUE TO MONITOR.
--- NOTE | 2021-09-12 16:40 | NUR ---
RN NOTES PATIENT MOANING, COMPLAINING OF PAIN. PRN MORPHINE 2MG/ML ADMINISTERED. WILL CONTINUE TO MONITOR.
[2021-09-12 16:59] VITALS: BP 96/69
--- NOTE | 2021-09-12 18:53 | NUR ---
RING SEWER CLOSING NOTES PATIENT IN BED, ASLEEP AT THIS TIME WITH NO S/SX OF DISTRESS. PATIENT ON OXYGEN THERAPY AT 5 LPM VIA NASAL CANNULA; NO SOB NOTED. HO PICC PRESENT AND INTACT. ALL NEEDS ATTENDED DURING THE DAY. SAFETY PRECAUTIONS IN PLACE; BED IN LOW POSITION AND LOCKED, RAILS UP X2, CALL LIGHT WITHIN REACH. WILL ENDORSE TO DENTIST NURSE FOR SAMUEL.
--- NOTE | 2021-09-12 19:15 | NUR ---
RN OPENING NOTE, RECEIVED PATIENT IN BED AWAKE AND IS NOT EXHIBITING NO S/SX OF DISTRESS. PATIENT ON OXYGEN THERAPY AT 5 LPM VIA NASAL CANNULA; NO SOB NOTED. HO PICC PRESENT AND INTACT. SAFETY PRECAUTIONS IN PLACE; BED IN LOW POSITION AND LOCKED, RAILS UP X2, CALL LIGHT WITHIN REACH.CONTINUE TO MONITOR PATIENT THROUGHOUT THE SHIFT.
[2021-09-13] VITALS: BP 97/64
[2021-09-13] MEDS: MORPHINE SULFATE INJ 2 MG/ML DISP.SYRIN IV PRN (01:05)
[2021-09-13 04:00] VITALS: BP 90/54
--- NOTE | 2021-09-13 06:29 | NUR ---
RN CLOSING NOTES PATIENT REMAINS IN BED, A/O X 1. MONITORED PATIENT THROUGHOUT THE NIGHT, WILL ENDORSE CARE TO AM NURSE.
[2021-09-13 08:00] VITALS: BP 86/58
--- NOTE | 2021-09-13 10:06 | NUR ---
RN NOTE PT RESTING IN BED, AWAKE ALERT AND RESPONSIVE. ON O2 @5L VIA NC, TOLERATING WELL. CONTINUES ON HOSPICE. HO PICC IN PLACE AND PATENT. PT NOT IN PAIN OR DISCOMFORT. SAFETY MEASURES FOLLOWED. WILL CONTINUE TO MONITOR.
[2021-09-13] MEDS ORDERED: LORAZEPAM INJ 2 MG/ML VIAL IV PRN (10:30)
--- NOTE | 2021-09-13 11:39 | NUR ---
RN NOTE PT TO BE D/C AT [facility]. SPOKE WITH AND GAVE REPORT TO
== END 2021-09-13 12:19 | disposition hospice, inpatient (51) | DRG 291 ==
LOC: HOSPICE1 09:24
PROVIDERS: ATTEND Internal Medicine
DX: I13.0 Hypertensive heart and chronic kidney disease with heart failure and stage 1 through stage 4 chronic kidney disease, or unspecified chronic kidney disease (principal); I50.43 Acute on chronic combined systolic (congestive) and diastolic (congestive) heart failure; R57.0 Cardiogenic shock; J96.01 Acute respiratory failure with hypoxia; J18.9 Pneumonia, unspecified organism; N17.0 Acute kidney failure with tubular necrosis; J90 Pleural effusion, not elsewhere classified; I48.20 Chronic atrial fibrillation, unspecified; D68.9 Coagulation defect, unspecified; E44.0 Moderate protein-calorie malnutrition; N18.9 Chronic kidney disease, unspecified; I48.91 Unspecified atrial fibrillation; I42.9 Cardiomyopathy, unspecified; Z51.5 Encounter for palliative care; Y95 Nosocomial condition; Z79.01 Long term (current) use of anticoagulants; E87.5 Hyperkalemia; K76.1 Chronic passive congestion of liver; Z79.899 Other long term (current) drug therapy; I27.21 Secondary pulmonary arterial hypertension; E88.09 Other disorders of plasma-protein metabolism, not elsewhere classified; Z90.49 Acquired absence of other specified parts of digestive tract; Z95.810 Presence of automatic (implantable) cardiac defibrillator; N40.0 Benign prostatic hyperplasia without lower urinary tract symptoms; E03.9 Hypothyroidism, unspecified
CPT/HCPCS: G0378; J2060; J2270